=== PATIENT | female | born 1990 | race Caucasian/White ===

== ENCOUNTER → 2022-05-24 10:42 | Outpatient (CLI) | payer BC, MEDICAID, SELFPAY ==
--- NOTE | ~2022-05-24 | MR_ITS ---
EXAMINATION: MR lumbar spine wo con DATE: 05/24/2022 11:44 INDICATION: Low back pain. TECHNIQUE: Magnetic resonance imaging (MRI) of the lumbar spine was performed without intravenous con trast. Sequences included sagittal T2-weighted FSE, sagittal T2-weighted FS FSE, sagittal T1-weighted FSE, and axial T2-weighted FSE. COMPARISON: None FINDINGS: There is 4 degrees dextrocurvature of thoracolumbar spine. There are chronic bilateral L5 p ars defects. There is 3 mm anterolisthesis of L5 on S1. There is mild chronic height loss of L5 verte bral body posteriorly. There is a hemangioma in T12 vertebral body. There is mildly decreased disc he ight at L5-S1. The distal spinal cord signal intensity is normal. The conus medullaris is at T12-L1. The following disc levels are specifically discussed: L1-L2: The disc does not extend beyond the endplate margin. There is mild bilateral facet joint osteo arthritis. There is no neural foraminal stenosis. There is no central canal stenosis. L2-L3: The disc does not extend beyond the endplate margin. There is mild bilateral facet joint osteo arthritis. There is no neural foraminal stenosis. There is no central canal stenosis. L3-L4: The disc does not extend beyond the endplate margin. There is mild bilateral facet joint osteo arthritis. There is no neural foraminal stenosis. There is no central canal stenosis. L4-L5: The disc does not extend beyond the endplate margin. There is mild bilateral facet joint osteo arthritis. There is no neural foraminal stenosis. There is no central canal stenosis. L5-S1: There is a central protrusion with annular fissure. There is no facet joint osteoarthritis. Th ere is mild bilateral neural foraminal stenosis. There is no central canal stenosis. IMPRESSION: 1. Mild lumbar spondylosis. 2. Chronic bilateral L5 pars defects with grade 1 anterolisthesis of L5 on S1. Reviewed, dictated and finalized at location A. ECT ADMINISTRATOR
== END ==
PROVIDERS: PCP Family Medicine; Visit Provider Family Medicine
DX: M47.816 Spondylosis without myelopathy or radiculopathy, lumbar region (principal); M43.06 Spondylolysis, lumbar region; R20.2 Paresthesia of skin; I10 Essential (primary) hypertension; R29.2 Abnormal reflex; R53.83 Other fatigue
CPT/HCPCS: 72148

== ENCOUNTER 2024-03-19 09:10 | Outpatient (CLI) | payer BC, SELFPAY ==
--- NOTE | ~2024-03-19 | US_ITS ---
Limited ABDOMINAL ULTRASOUND Ordering provider: Amena Beckham MD History: . liver enzyme elevation . Comparison: None. FINDINGS: LIVER: Enlarged size and measures 19 cm. Increased echogenicity. No focal hepatic lesions or perihepa tic fluid collections are identified. GALLBLADDER: Unremarkable. No evidence for stones, sludge, gallbladder wall thickening or pericholecy stic fluid collections. A negative sonographic Salinas's sign was noted. BILIARY DUCTS: No evidence for intra or extrahepatic biliary dilation. Common bile duct measures 4 mm in diameter which is within normal limits. PANCREAS: Partially seen. Normal echotexture and size. UPPER ABDOMINAL AORTA: Normal in caliber. IVC: Patent. FREE FLUID: None. IMPRESSION: Hepatomegaly with fat infiltration. Otherwise, Unremarkable limited ultrasound of the abdomen. Reviewed, dictated and finalized at location A. RING MACHINE OPERATOR
== END 2024-03-19 09:11 | disposition home or self-care (01) ==
LOC: GOSHIMG 09:12
PROVIDERS: PCP Family Medicine; Visit Provider Family Medicine
DX: R74.8 Abnormal levels of other serum enzymes (principal); K76.0 Fatty (change of) liver, not elsewhere classified
CPT/HCPCS: 76705